=== PATIENT | female | born 1995 | race Caucasian/White ===

== ENCOUNTER → 2017-06-05 | Outpatient (CLI) | payer BC ==
[~2017-06-05] MED LIST: BCPILLS PO; CIPR1TAB10 PO; FLUO20CA36 PO; FLUT0.15 NAE
== END | disposition home or self-care (01) ==
LOC: C.LAB1850 09:20
PROVIDERS: ATTEND Obstetrics & Gynecology
DX: Z11.3 Encounter for screening for infections with a predominantly sexual mode of transmission (principal)

== ENCOUNTER → 2017-06-05 | Outpatient (CLI) | payer BC ==
[2017-06-11 01:01] LABS: CHLAMYDIA TRACH RNA*** NOT DETECTED (NOT DETECTED); GC (NEIS GONORRHOEAE)RNA** NOT DETECTED (NOT DETECTED); TRICHOMONAS VAGINALIS RNA** NOT DETECTED (NOT DETECTED)
== END | disposition home or self-care (01) ==
LOC: C.LABSPEC 12:33
PROVIDERS: ATTEND Obstetrics & Gynecology
DX: Z11.3 Encounter for screening for infections with a predominantly sexual mode of transmission (principal)

== ENCOUNTER → 2018-06-30 | Outpatient (CLI) | payer OTHER | END | disposition home or self-care (01) | LOC: C.LABSPEC 17:04 | PROVIDERS: ATTEND Family Medicine | DX: Z11.3 Encounter for screening for infections with a predominantly sexual mode of transmission (principal) ==

== ENCOUNTER 2024-02-08 17:18 | Inpatient (IN) ==
[2024-02-08] MEDS ORDERED: LIDOCAINE 1% LOCAL 20 ML VIAL INFIL PRN (21:24)
--- NOTE | 2024-02-08 21:31 | History & Physical Report ---
Date of Service February 08, 2024 Assessment & Plan (1) Normal labor: Plan admit, iv, labs. fhts categ 1. plan epidural. rh neg, eval pp. History of Present Illness Chief Complaint: contractions Primary Care Provider: Trang Shahid, DO 28yo at 40wks ega presents to LD with cc of early active labor. Patient writhing in pain. No rom, no vb. +FM. Cx prior exam 2cm and then 3cm by nursing. PNC c/b 1. Rh negative PNL rh neg, ri, gbs neg OBH: g1 GYNH: nl paps no stds Allergies Allergy/AdvReac Type Severity Reaction Status Date / Time seasonal allergies Allergy Mild Congested Uncoded 02/07/24 10:20 Home Medications Medication Instructions Recorded Confirmed Type albuterol sulfate 90 mcg/actuation 2 puff inhalation Q6H PRN 11/11/23 02/08/24 History aerosol inhaler Shortness Of Breath Or Wheezing fluoxetine 10 mg capsule 10 mg PO BID 11/11/23 02/08/24 History magnesium oxide 400 mg PO DAILY 11/11/23 02/08/24 History omega-3 fatty acids-fish oil 684 1 cap PO DAILY 11/11/23 02/08/24 History mg-1,200 mg capsule,delayed release vitamins-iron fumarate 65 1 tab PO DAILY 11/11/23 02/08/24 History mg iron-folic acid 1 mg tablet riboflavin (vitamin B2) 25 mg 25 mg PO DAILY 11/11/23 02/08/24 History tablet vitamins A,C,W-ripw-oanqnr 4,296 1 cap PO DAILY 11/11/23 02/08/24 History mcg-226 mg-90 mg capsule breast pump #1 ea 12/17/23 02/07/24 Rx Patient History Medical History (Updated 02/08/24 @ 21:29 by Kiera Tirado MD, FACOG) Hypertension Hypertension Anxiety Prehypertension Pelvic pain Murmur Hematuria Fatigue Fainting Encounter for screening for infections with predominantly sexual mode of transmission Encounter for routine pelvic examination Encounter for contraceptive management Elevated blood pressure reading without diagnosis of hypertension Ecchymosis Dysmenorrhea Acute pharyngitis Acne Abnormal menses Scoliosis Asthma, exercise induced Anxiety Varicella vaccination Vasovagal syncope Raynaud phenomenon Surgical History (Updated 02/08/24 @ 21:29 by Kiera Tirado MD, FACOG) S/P tonsillectomy S/P wisdom tooth extraction Family History Grandmother (Maternal) Hyperlipidemia Grandfather (Maternal) Hyperlipidemia Hypertension Diabetes Grandfather (Paternal) Colorectal cancer Denies family history of Ovarian cancer Prostate cancer Myocardial infarction Breast cancer Social History (Updated 06/12/23 @ 13:20 by Brea Fitch) Smoking Status: Never smoker Do You Dip or Chew Tobacco: No; Hx Alcohol Use: No Hx Substance Use: No Preferred Language: Iraqi Obstetrics Gyn Physician Required: No Beliefs That Will Affect Care: None marital status: marital status details: leonie Molina (29) [phone] Current Living Situation: Significant Other Current Living Situation Comment: lives with Fob, cat-fob to change litter, pt gloves/mask current occupational status: employed 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 [place] Other Information That Helps Us Care for You: No Feels Safe at Home: Yes Safety Concerns: Feels Safe At This Time Assistive Devices: None Review of Systems as per Subjective / HPI Physical Exam Constitutional: WD/WN, vitals as above Respiratory: normal respiratory effort, lungs clear to auscultation Cardiovascular: Rate/Rhythm: regular rate and regular rhythm Gastrointestinal (Abdomen): soft gravid nt efw 7-8# Musculoskeletal: no edema nontender calves Neurologic: grossly normal Psychiatric: A+Ox3, euthymic affect Genitourinary: OB Exam Abdomen: + vertex Manual OB Exam: + cervical dilation 4 cm, + cervical effacement 90% and + station -2 OB Exam Monitor Tracing: + external FHT monitor used, + external uterine monitor used (q2), + category I and + normal FHT variability Results & Data Vital Signs (Past 12 Hours) Vital Signs Temp Pulse Resp BP 02/08/24 19:45 98.2 F 18 02/08/24 19:45 76 124/70 02/08/24 17:32 98.1 F 20 02/08/24 17:31 100 H 130/79 Coding Level of Care Code None Diagnoses Normal labor O80; Z37.9
[2024-02-08] MEDS: LACTATED RINGER'S 1,000 ML IV PRN (21:39)
[2024-02-08] MEDS ORDERED: SODIUM CHLORIDE 0.9% PF INJ 10 ML VIAL EPI PRN (21:52)
[2024-02-08] MEDS ORDERED: diphenhydrAMINE 50 MG/ML VIAL IV PRN (21:52)
[2024-02-08] MEDS ORDERED: fentaNYL citrate PF 100 MCG/2 ML VIAL EPI PRN (21:52)
[2024-02-08] MEDS ORDERED: ROPIVACAINE 0.5% PF 5 MG/ML 20 ML VIAL EPI PRN (21:52)
[2024-02-08] MEDS ORDERED: NALBUPHINE HCL 5 MG in SYRINGE 0 ML IV PRN (21:52)
[2024-02-08] MEDS ORDERED: LIDOCAINE 2% MPF LOCAL 5 ML VIAL EPI PRN (21:52)
[2024-02-08] MEDS ORDERED: BUPIVACAINE 0.25% PF 30 ML VIAL EPI PRN (21:52)
[2024-02-08] MEDS ORDERED: NALOXONE HCL 1 MG in SODIUM CHLORIDE 0.9% 1,000 ML IV PRN (21:52)
[2024-02-08] MEDS ORDERED: ePHEDrine sulfate 50 MG/ML AMP IV PRN (21:52)
[2024-02-08] MEDS ORDERED: fentANYL 2 MCG/ML BUPIVacaine 0.125%-NSS 100ML BAG EPI PRN (21:52)
[2024-02-08] MEDS ORDERED: NALOXONE HCL 0.4 MG/1 ML VIAL/CARP IV PRN (21:52)
--- NOTE | 2024-02-08 21:52 | Anesthesiology Consultation ---
Date of Service February 08, 2024 Assessment & Plan (1) Encounter for pre-operative examination: Chart Review Chart Review: Acceptable Risk for Surgery and Patient NOT seen in Pre Admission Testing Consults Requested none History Height/Weight Height: 5 ft 7 in Weight: 79.832 kg Allergies Allergy/AdvReac Type Severity Reaction Status Date / Time seasonal allergies Allergy Mild Congested Uncoded 02/07/24 10:20 Medications Home Medications Medication Instructions Recorded Confirmed Last Taken albuterol sulfate 90 mcg/actuation 2 puff inhalation Q6H PRN 11/11/23 02/08/24 Unknown aerosol inhaler Shortness Of Breath Or Wheezing fluoxetine 10 mg capsule 10 mg PO BID 11/11/23 02/08/24 02/08/24 08:00 magnesium oxide 400 mg PO DAILY 11/11/23 02/08/24 02/07/24 20:00 omega-3 fatty acids-fish oil 684 1 cap PO DAILY 11/11/23 02/08/24 02/06/24 08:00 mg-1,200 mg capsule,delayed release vitamins-iron fumarate 65 1 tab PO DAILY 11/11/23 02/08/24 02/08/24 08:00 mg iron-folic acid 1 mg tablet riboflavin (vitamin B2) 25 mg 25 mg PO DAILY 11/11/23 02/08/24 02/07/24 08:00 tablet vitamins A,C,S-brsl-vsuswd 4,296 1 cap PO DAILY 11/11/23 02/08/24 02/07/24 08:00 mcg-226 mg-90 mg capsule breast pump #1 ea 12/17/23 02/07/24 Unknown Active Medications Generic Name Dose Route Start Last Admin Trade Name Freq PRN Reason Stop Dose Admin Lactated Ringer's 1,000 mls @ 125 mls/hr 02/08/24 21:24 02/08/24 21:39 Lr IV 02/10/24 21:23 999 mls/hr .Q8H PRN Administration L&D Protocol Protocol Past Medical History Medical History Hypertension Hypertension Anxiety Prehypertension Pelvic pain Murmur Hematuria Fatigue Fainting Encounter for screening for infections with predominantly sexual mode of transmission Encounter for routine pelvic examination Encounter for contraceptive management Elevated blood pressure reading without diagnosis of hypertension Ecchymosis Dysmenorrhea Acute pharyngitis Acne Abnormal menses Scoliosis Asthma, exercise induced Anxiety Varicella vaccination Vasovagal syncope Raynaud phenomenon Past Family History Family History Grandmother (Maternal) Hyperlipidemia Grandfather (Maternal) Hyperlipidemia Hypertension Diabetes Grandfather (Paternal) Colorectal cancer Denies family history of Ovarian cancer Prostate cancer Myocardial infarction Breast cancer Past Surgical History Surgical History S/P tonsillectomy S/P wisdom tooth extraction Social History Smoking Status: Never smoker Do You Dip or Chew Tobacco: No Hx Alcohol Use: No Hx Substance Use: No Physical Exam Vital Signs Last Vital Signs Temp 98.2 F 02/08/24 19:45 Pulse 89 02/08/24 21:49 Resp 18 02/08/24 19:45 BP 124/70 02/08/24 19:45 Pulse Ox 94 02/08/24 21:49
[2024-02-08 22:13] LABS: Hematocrit (blood only) 41.4 % (37.0-47.0); Hemoglobin 13.8 g/dl (12.0-16.0); Mean Corpuscular Hemoglobin 30.3 pg (25.0-34.0); Mean Corpuscular Hgb Conc 33.3 g/dL (32.0-36.0); Mean Corpuscular Volume 90.8 fL (80.0-100.0); Mean Platelet Volume 9.6 fL (9.4-12.4); Platelet Count 189 K/uL (130-400); RDW Coefficient of Variation 14.5 % (11.5-14.5); RDW Standard Deviation 47.5 fL (36.4-46.3); Red Blood Count 4.56 M/uL (4.20-5.40); White Blood Count 16.08 K/ul (4.8-10.8)
[2024-02-08] MEDS: BUPIVACAINE 0.25% PF 30 ML VIAL ONE (22:30)
[2024-02-08] MEDS: LIDOCAINE 2%/EPINEPHRINE 1:200,000 20 ML PF ONE (22:30)
[2024-02-08] MEDS: fentANYL 2 MCG/ML BUPIVacaine 0.125%-NSS 100ML BAG ONE (22:34)
[2024-02-08] MEDS: fentaNYL citrate PF 100 MCG/2 ML VIAL ONE (22:35)
[2024-02-08] MEDS: ePHEDrine sulfate 50 MG/ML AMP ONE (22:35)
[2024-02-08] MEDS: SODIUM CHLORIDE 0.9% PF INJ 10 ML VIAL ONE (22:35)
[2024-02-08] MEDS: LIDOCAINE 2%/EPINEPHRINE 1:200,000 20 ML PF EPI STA (22:36)
[2024-02-08] MEDS: fentaNYL citrate PF 100 MCG/2 ML VIAL EPI STA (22:36)
[2024-02-08] MEDS: BUPIVACAINE 0.25% PF 30 ML VIAL EPI STA (22:36)
[2024-02-08] MEDS: SODIUM CHLORIDE 0.9% PF INJ 10 ML VIAL EPI STA (23:28)
--- NOTE | 2024-02-08 23:38 | Labor Progress Brief Note ---
Date of Service February 08, 2024 Subjective comfortable with epidural. Assessment & Plan (1) Normal labor: Plan good progress in labor. fhts categ 1. anticip 2nd stage soon. Admission and Anticipated Discharge Date Admission Date: February 08, 2024 Physical Exam Constitutional: WD/WN, vitals as above Genitourinary: Manual OB Exam: + cervical dilation 9 cm, + cervical effacement 100%, + station + 1 and + amniotic fluid (arom) clear OB Exam Monitor Tracing: + external FHT monitor used, + external uterine monitor used (q2), + category I and + normal FHT variability Results & Data Vital Signs (Past 12 Hours) Vital Signs Temp Pulse Resp BP Pulse Ox 02/08/24 23:31 87 123/85 02/08/24 23:29 83 98 02/08/24 23:28 81 89 L 02/08/24 23:24 82 96 02/08/24 23:19 75 100 02/08/24 23:14 84 123/59 L 97 02/08/24 23:09 84 100 02/08/24 23:04 79 100 02/08/24 23:01 75 87 L 02/08/24 22:59 96 02/08/24 22:59 84 02/08/24 22:59 85 128/64 02/08/24 22:54 77 100 02/08/24 22:52 79 89 L 02/08/24 22:49 85 98 02/08/24 22:44 76 130/72 100 02/08/24 22:41 77 88 L 02/08/24 22:39 86 129/70 100 02/08/24 22:37 96 H 20 131/74 02/08/24 22:35 81 129/70 02/08/24 22:34 89 100 02/08/24 22:33 85 133/70 02/08/24 22:31 79 141/73 H 02/08/24 22:30 91 H 89 L 02/08/24 22:29 90 02/08/24 22:29 89 02/08/24 22:29 94 H 138/76 02/08/24 22:27 86 16 137/81 02/08/24 22:24 88 95 02/08/24 22:20 81 85 L 02/08/24 22:19 84 100 02/08/24 22:14 83 L 02/08/24 22:14 69 02/08/24 22:14 69 79 L 02/08/24 22:09 87 98 02/08/24 22:04 68 100 02/08/24 21:59 75 98 02/08/24 21:55 103 H 94 02/08/24 21:54 97 H 96 02/08/24 21:49 89 94 02/08/24 21:44 98 02/08/24 21:44 79 02/08/24 21:44 102 H 93 02/08/24 19:45 98.2 F 18 02/08/24 19:45 76 124/70 02/08/24 17:32 98.1 F 20 02/08/24 17:31 100 H 130/79 Coding Level of Care Code None Diagnoses Normal labor O80; Z37.9
[2024-02-08] MEDS ORDERED: OXYTOCIN 30 UNITS/NSS 30 UNITS/500 ML BAG IV PRN (23:46)
[2024-02-09] MEDS: OXYTOCIN 30 UNITS/NSS 30 UNITS/500 ML BAG IV PRN (02:37)
--- NOTE | 2024-02-09 02:54 | Delivery Summary ---
Vaginal Delivery Summary Date of Service February 09, 2024 Vaginal Delivery Summary and 2nd Degree LAC The patient dilated to complete and pushed to deliver a viable male infant Apgars 8 and 9 via over 2nd degree perineal laceration. Cephalic and anterior shoulder delivered spontaneously. Then with gentle downward pressure remaining shoulder and body delivered. Infant was vigorous and crying at . Cord clamped at 30 seconds of life and to maternal abdomen where the cord was then doubly clamped and cut. Placenta delivered spontaneously and intact, three-vessel cord. Hemostasis achieved with dilute pitocin and uterine massage and drainage of the bladder for approximately 75 cc under sterile conditions. Laceration repaired in routine fashion with 3-0 vicryl. Left labial separation reapproximated with 4-0 vicryl. Cervix and sulci intact. EBL 300 cc. Mother and baby stable in recovery. [facility] [place] Delivery Type Details: and 2nd Degree LAC
[2024-02-09] MEDS ORDERED: ALBUTEROL HFA 8 GM INHALER INH PRN (03:02)
[2024-02-09] MEDS ORDERED: HYDROCORTISONE ACETATE 25 MG SUPP PR PRN (03:02)
[2024-02-09] MEDS ORDERED: bisacodyL 10 MG SUPP PR PRN (03:02)
[2024-02-09] MEDS ORDERED: OXYTOCIN 30 UNITS/NSS 30 UNITS/500 ML BAG IV PRN (03:02)
[2024-02-09] MEDS: DIPHTHER/TETAN/PERTUS Vaccine (Tdap, Adol/Adult) 0.5mL IM ONE (03:28)
[2024-02-09] MEDS: OXYTOCIN 20 UNITS/LR 1,002 ML IV SCH (03:32)
[2024-02-09] MEDS: BENZOCAINE 20% SPRY 85 APPLN/85 GM CAN EXT PRN (04:52)
[2024-02-09] MEDS ORDERED: NON-FORMULARY MEDICATION (Riboflavin (Vitamin B2) 25 mg Tablet) PO SCH (09:00)
[2024-02-09] MEDS: IBUPROFEN 600 MG TAB PO PRN (09:26)
[2024-02-09] MEDS: DOCUSATE SODIUM 100 MG CAP PO SCH (09:26)
[2024-02-09] MEDS: PRENATAL VITAMIN 1 TAB PO SCH (09:26)
[2024-02-09] MEDS: FLUoxetine HCL 10 MG CAP PO SCH (09:27)
[2024-02-09] MEDS: MAGNESIUM OXIDE 400 MG TAB PO SCH (09:27)
--- NOTE | 2024-02-09 11:46 | Anesthesia Procedure Note ---
Date of Service February 09, 2024 Anesthesia Post Epidural Note Vital Signs Vital Signs: Temp Pulse Resp BP Pulse Ox O2 Del Method 36.4 C L 88 17 132/84 99 Room Air 02/09/24 08:45 02/09/24 08:45 02/09/24 08:45 02/09/24 08:45 02/09/24 05:39 02/09/24 08:45 Pain Intensity Lower Abdomen: Pain Intensity: 7 Notes Mental Status: alert / awake / arousable and participated in evaluation Nausea / Vomiting: adequately controlled Pain: adequately controlled Airway Patency, RR, SpO2: stable & adequate BP & HR: stable & adequate Hydration State: stable & adequate Neuraxial Anesthesia: was administered and sensory block is resolving Anesthetic Complications: no major complications apparent and Pt Satisfied with anesthetic care Epidural: Removed without complications and With tip intact
[2024-02-09] MEDS: ACETAMINOPHEN 325 MG TAB PO PRN (12:33)
[2024-02-09] MEDS: oxyCODONE/ACETAMINOPHEN 5mg/325mg TAB PO PRN (17:30)
--- NOTE | 2024-02-09 19:31 | Communication Note ---
Date of Service: February 09, 2024 Alerted by nursing and at handoff of potential PDPHA. Patient complaining of positional BENDER radiating to neck and shoulders, waxed/wained throughout day, at worst 9/10, currently 5/10, improved with lying flat. Due to concern for PDPHA instructed patient on conservative therapy (hydration, pain medication, caffeine) vs. epidural blood patch. Patient elected for epidural blood patch. Procedure note to follow.
--- NOTE | 2024-02-09 19:35 | Anesthesia Procedure Note ---
Anesthesia Procedure Note Epidural Blood Patch Procedure Note Vital Signs: BP: 125/77 HR: 80 RR: 21 Temp: 98.2 Date of procedure: 02/09/24 Consent: Risk / Benefits Reviewed With: PT / POA / Parent / Guardian, Accepts Plan, Informed Consent Obtained and All Questions Answered Risks include: Failure of technique, Back pain, Infection, Bleeding, Nerve injury and Dural puncture Monitors attached: Blood Pressure and Pulse Oximetry Time out completed: Yes Premedication: None Position: Sitting Surgical Prep: Hand hygeine: Soap and water Equipment/Supplies: Cap, Mask, Sterile gloves, Sterile drapes and Sterile procedures used Skin prep: Chloraprep Local medication: 1% Lidocaine (ml) (3 ml) Venous access site: Right antecubital vein Site: Midline Attempts: 1 Procedure Summary: Time out performed, patient positioned in seated position, prepped and draped. Lidocaine infiltration and epidural space accessed with 17 G thouy at 6 cm depth, no blood/csf/parasthesia. Nurse at front obtained sterile IV access of right AC with 20 G IV, 20 ml of blood drawn and inserted in epidural space at slow pace without patient pain or discomfort. Patient instructed to lie flat for 60 min and slowly sit up, no strenuous activity for 24 hours. Post-Procedure: Pt hemodynamically stable, Pt tolerates well and No complications
--- NOTE | 2024-02-10 06:55 | Obstetrical Progress Note ---
Date of Service <Shelly Barnett MD - Last Filed: 02/10/24 06:56> February 10, 2024 Assessment & Plan <Shelly Barnett MD - Last Filed: 02/10/24 06:56> (1) Encounter for assessment: (2) Rh negative status during : Plan Patient with the above mentioned history and findings was evaluated at bedside and found awake, alert, oriented in all spheres, afebrile, and in no acute distress. Vital signs showed no fever and blood pressures remained stable. Her blood type is O negative with baby's blood type being A positive (s/p Rhogam on 02/09/24) and most recent hemoglobin is adequate at 13.8 g/dL. Serologies are negative for GBS and patient is Rubella immune. Overall, patient is doing well clinically and meeting the desired milestone for her course. Will continue routine pp care and encourage breastfeed with the help of network relations consultant since patient is having some difficulty. Consider discharge tomorrow if patient remains stable. All questions were answered. <Kiera Tirado MD, FACOG - Last Filed: 02/10/24 07:34> (1) Encounter for assessment: (2) Rh negative status during : Subjective <Shelly Barnett MD - Last Filed: 02/10/24 06:56> Neena is a 28 y/o female who is now PPD # 1 following @ 40 1/7 wga. Reports feeling well overall this morning. Refers mild abdominal cramping & 3/10 pain well managed on analgesics. Voiding spontaneously. Tolerating meals overnight and able to ambulate some. Has been passing gas but no bm yet. Some persistent lochia with some improvement this morning. Trying to breastfeed but having difficulty. Constitutional: no fever, no chills or no sweats Denies shortness of breath or difficulty breathing Cardiovascular: no chest pain or no palpitations Breast: no breast pain Genitourinary (female): no dysuria Neurologic: no headache(s) Denies changes in vision Physical Exam <Shelly Barnett MD - Last Filed: 02/10/24 06:56> General: Alert. Oriented to person, time, and place. Afebrile. No acute distress. Eyes: pupils equal and reactive to light bilaterally, extraocular movements intact. Cardiac: Regular rate and rhythm, no murmurs/rubs/gallops. Respiratory: Clear to auscultation bilaterally a/p, no wheezes/rales/rhonchi. No increased work of breathing. Symmetrical chest rise. No respiratory distress. Abdomen: Soft, nontender, nondistended. Bowel sounds present. Uterus: Uterine fundus firm, nontender, and palpable below umbilicus. Lower Extremities: No lower extremity edema or swelling. No deep calf pain. Milla's negative bilaterally. Psych: Euthymic affect. Mood and affect congruence. Regular speech rate and content. Results & Data <Shelly Barnett MD - Last Filed: 02/10/24 06:56> Vital Signs (Past 12 Hours) Vital Signs Temp Pulse Resp BP Pulse Ox O2 Del Method 02/10/24 00:05 37.3 C 83 16 128/78 Room Air 02/09/24 21:00 36.7 C 80 16 124/84 98 Room Air 02/09/24 20:10 80 116/76 98 Room Air 02/09/24 19:55 84 116/76 98 Room Air 02/09/24 19:40 78 103/61 97 Room Air 02/09/24 19:25 86 124/79 98 Room Air Supervising Physician <Kiera Tirado MD, FACOG - Last Filed: 02/10/24 07:34> Co-Signing Physician Notes Resident Physician Supervision Note: I was present with Dr. Grossman during the history and exam. I discussed the case with the resident and agree with the findings and plan as documented in the note. Any exceptions or clarifications are listed here: stable routine care. rh neg, had rhogam. ri. abd ff 2 down nt, ext nt calves. ppd#1 s/p routine care. Documented By: Kiera Tirado MD, FACOG
--- NOTE | 2024-02-10 08:59 | Communication Note ---
Date of Service: February 10, 2024 Asked to assess Neena this AM for back pain. Neena states that her headache has improved following blood patch yesterday, however she has severe back pain/ pressure that began after blood patch yesterday and continues today. She states that her pain radiates into her lumbar back bilaterally. There are no radiating symptoms down either extremity and no weakness or loss of sensation. She has had trouble standing straight and walking due to pain in the back. She is afebrile. On exam, vitals are normal. the site of the blood patch appears normal. There is no swelling or redness. She does not have tenderness to palpitation. Sensation and motor intact in lower extremities. Upon asking her to stand, she is able to do so slowly but remains hunched over due to pain. Her gait appears slow and unsteady. Discussed with patient that back pain following blood patch is common and most likely blood patch has put pressure in her lumbar back that may be irritating lumbar nerve roots. Discussed that symptoms should improve with time. Less likely epidural hematoma/abscess given afebrile with normal vitals and labs, no evidence of bruising or bleeding, no motor/sensory dysfunction. No further diagnostic studies warranted at this time. Instructed patient to notify nurse if any red flag symptoms including fever, weakness, bowel/bladder dysfunction and will have call anesthesiologist see patient tomorrow AM prior to discharge to ensure symptoms are improved. In the meantime, advised tylenol 1 g q6h, ibuprofen 600 mg q6h and assistance with standing/walking.
[2024-02-10] MEDS: ACETAMINOPHEN 500 MG TAB PO PRN (09:21)
[2024-02-10] MEDS: CYCLOBENZAPRINE HCL 10 MG TAB PO SCH (22:02)
--- NOTE | 2024-02-11 08:01 | Obstetrical Progress Note ---
Date of Service <Shelly Barnett MD - Last Filed: 02/11/24 08:01> February 11, 2024 Assessment & Plan <Shelly Barnett MD - Last Filed: 02/11/24 08:01> (1) Rh negative status during : (2) Encounter for assessment: Plan Patient with the above mentioned history and findings was evaluated at bedside and found awake, alert, oriented in all spheres, afebrile, and in no acute distress. Vital signs showed no fever and blood pressures remained stable. Her blood type is O negative with baby's blood type being A positive (s/p Rhogam on 02/09/24) and most recent hemoglobin is adequate at 13.8 g/dL. Serologies are negative for GBS and patient is Rubella immune. Overall, patient is doing well clinically and meeting the desired milestone for her course. Headaches seem to be a combination of possible tension headache with some musculoskeletal component given improvement with positional changes. Advised she can continue to use ibuprofen, heating pads, and suspect that she will feel better after better sleep. Patient found stable and fit to be discharged today. Discharge instructions discussed. Patient to call to make an appointment with the OB office for her 6-week routine pp evaluation. All questions answered. <Yaya Mckeon MD - Last Filed: 02/13/24 16:40> (1) Rh negative status during : (2) Encounter for assessment: Subjective <Shelly Barnett MD - Last Filed: 02/11/24 08:01> Neena is a 28 y/o female who is now PPD # 2 following @ 40 1/7 wga. Reports feeling well overall this morning. Refers mild abdominal cramping & 3/10 pain well managed on analgesics. Has been having headaches since last night that come on suddenly. She describes that they start at the base of her skull and move down her neck and gets better when she lies down. Motrin and Flexeril help with the pain some. No associated N/V, photophobia or phonophobia. Voiding spontaneously. Tolerating meals overnight and able to ambulate some. Has been passing gas but no bm yet. Some persistent lochia with some improvement this morning. better today. Constitutional: no fever, no chills or no sweats Denies shortness of breath or difficulty breathing Cardiovascular: no chest pain or no palpitations Breast: no breast pain Genitourinary (female): no dysuria Neurologic: no headache(s) Denies changes in vision Physical Exam <Shelly Barnett MD - Last Filed: 02/11/24 08:01> General: Alert. Oriented to person, time, and place. Afebrile. No acute distress. Eyes: pupils equal and reactive to light bilaterally, extraocular movements intact. Cardiac: Regular rate and rhythm, no murmurs/rubs/gallops. Respiratory: Clear to auscultation bilaterally a/p, no wheezes/rales/rhonchi. No increased work of breathing. Symmetrical chest rise. No respiratory distress. Abdomen: Soft, nontender, nondistended. Bowel sounds present. Uterus: Uterine fundus firm, nontender, and palpable below umbilicus. Lower Extremities: No lower extremity edema or swelling. No deep calf pain. Milla's negative bilaterally. Psych: Euthymic affect. Mood and affect congruence. Regular speech rate and content. Results & Data <Shelly Barnett MD - Last Filed: 02/11/24 08:01> Vital Signs (Past 12 Hours) Vital Signs Temp Pulse Resp BP Pulse Ox O2 Del Method 02/10/24 23:15 36.8 C 61 18 118/77 98 Room Air 02/10/24 20:20 37.1 C 74 18 127/79 100 Room Air Supervising Physician <Yaya Mckeon MD - Last Filed: 02/13/24 16:40> Co-Signing Physician Notes Patient seen with resident and agree with the above findings and plan. Stable for discharge.
--- NOTE | 2024-02-11 09:01 | Communication Note ---
Date of Service: February 11, 2024 I evaluated the patient. The patient was sitting up eating breakfast. The patient stated that she had a positional BENDER with neck pain in the middle of the night but it improved with ibuprofen. The patient was currently doing well. I further educated her on spinal headaches. I recommended that the patient continue ibuprofen and oral fluids. I spoke with Dr. Mckeon, and she was stable for discharge from the anesthesia perspective.
== END 2024-02-11 14:04 | disposition home or self-care (01) | DRG 807 ==
LOC: OPB 17:18 → 4S1 17:19 → 4E2 02-09 05:16

== ENCOUNTER 2025-09-16 02:26 | Inpatient (IN) ==
[2025-09-16] MEDS ORDERED: LIDOCAINE 1% LOCAL 20 ML VIAL INFIL PRN (03:05)
[2025-09-16] MEDS ORDERED: OXYTOCIN 30 UNITS/NSS 30 UNITS/500 ML BAG IV PRN ×2 (03:05→11:00)
--- NOTE | 2025-09-16 03:08 | History & Physical Report ---
Date of Service September 16, 2025 Assessment & Plan (1) PROM (premature rupture of membranes): Plan patient will be admitted with prom. Would like to allow expectant management for now and see if contractions orange picker and onet of labor ensues. Discussed pit aug at 6 or so hours if needed. She agrees. fetus category. epidural on demand. anticipate . History of Present Illness Chief Complaint: rom Primary Care Provider: Trang Shahid DO Patient is a [id number] with iup at 39 2/7 who presents to labor and delivery c/o gross rom about 1:30 am, clear. no real onset of contractions. +fm. Is scheduled for a primary elective c/s because of hx of previous trauma. ON review of records and discussion with patient, poor experience last time, nurse not responsive to needs, did not call doctor until practically too late for delivery (only pushed 3 times), ineffective epidural, very painful delivery and repair (delivery note reviewed, Dr. Tirado, does not note complicated repair, second degree), slow healing of perineal tear, small cystourethrocele pp. Patient is already feeling better about the situation and has reconsidered her choice and would like to proceed with vaginal delivery. and Delivery Plans Need for Rhogam d/t RH Negative Mother *Rhogam given 07/12/2025 - SP Hypothyroidism in *TFT's Q4wks sees [facility] endo Ruptured ectopic 10/2024. Salpingectomy May choose primary C/S SCHEDULED FOR 09/17/[address] BURGOS OB Labs: Blood Type O Negative 02/18/25 Antibody Screen NEGATIVE 07/12/25 Hgb 11.0 g/dl (12.0-16.0) L 06/28/25 Hct 33.0 % (37.0-47.0) L 06/28/25 MCV 89.3 fL (80.0-100.0) 02/18/25 Plt Count 231 K/uL (130-400) 02/18/25 Rubella IgG Antibody Immune (Immune) 02/18/25 RPR Nonreactive (Nonreactive) 06/18/23 Treponema pallidum Ab Negative (Negative) 06/28/25 Hep Bs Antigen Negative (Negative) 02/18/25 Hep Bs Antigen NON-REACTIVE (NON-REACTIVE) 09/10/23 Hepatitis C Antibody Negative (Negative) 02/18/25 Hepatitis C Ab (EIA) NON-REACTIVE (NON-REACTIVE) 09/10/23 HIV 1&2 Ab/P24 Ag 4thGn Negative (Negative) 02/18/25 HIV (1&2) Ag & Ab Conf NON-REACTIVE (NON-REACTIVE) 06/18/23 Glucose 1 Hr 50 gm 89 mg/dl (70-130) 06/28/25 OB Optional Labs: Chlamydia trachomatis RNA Not Detected (NotDetected) 02/18/25 Neisseria gonorrhoeae RNA Not Detected (NotDetected) 02/18/25 Thyroid Stimulating Hormone (TSH) 1.775 uIu/ml (0.300-4.500) 08/11/25 Labs Reviewed: cf/sma-negative in prior , HK gbs neg Allergies Allergy/AdvReac Type Severity Reaction Status Date / Time nickel Allergy Mild Rash Verified 09/09/25 08:59 seasonal allergies Allergy Mild Congested Uncoded 09/09/25 08:59 Home Medications Medication Instructions Recorded Confirmed Type albuterol sulfate 90 mcg/actuation 2 puff inhalation Q6H PRN 11/11/23 09/09/25 History aerosol inhaler Shortness Of Breath Or Wheezing fluoxetine 10 mg capsule 10 mg PO BID 11/11/23 09/09/25 History magnesium oxide 400 mg PO DAILY 11/11/23 09/09/25 History omega-3 fatty acids-fish oil 684 1 cap PO DAILY 11/11/23 09/09/25 History mg-1,200 mg capsule,delayed release vitamins-iron fumarate 65 1 tab PO DAILY 11/11/23 09/09/25 History mg iron-folic acid 1 mg tablet riboflavin (vitamin B2) 25 mg 25 mg PO DAILY 11/11/23 09/09/25 History tablet vitamins A,C,H-ezcl-tomopj 4,296 1 cap PO DAILY 11/11/23 09/09/25 History mcg-226 mg-90 mg capsule levothyroxine 75 mcg tablet 75 mcg PO .COMPLEX #90 tabs 06/29/25 09/09/25 Rx calcium carbonate 500 mg PO UD PRN Acid Reflux 09/08/25 09/09/25 History ferrous sulfate 325 mg (65 mg 325 mg PO Q OTHER DAY 09/08/25 09/09/25 History iron) tablet (Iron (ferrous sulfate)) Patient History Medical History Acid reflux Acne Anxiety Asthma, exercise induced last used rescue inhaler > 1.5 years ago Breast lump on right side at 1 o'clock position had mammo and US, felt this was due to (had just had child) Dysmenorrhea Elevated blood pressure reading without diagnosis of hypertension states she had "white coat syndrome" but had never been on bp meds Fainting has had numerous times- while in highschool, felt related to anxiety- no issues as an adult Hematuria hx Hx: UTI (urinary tract infection) (06/2025) no current symptoms Hypothyroidism Midline cystocele Murmur (2007) diagnosed when a child, had an echo approx 2007 at [facility]- no findings no murmur noted at 11/11/23 ED visit Raynaud phenomenon Rh negative status during Ruptured ectopic (11/24/24) Left salpingectomy 11/24/24 Scoliosis Surgical History Hx of dilation and curettage (10/2024) ectopic S/P tonsillectomy S/P wisdom tooth extraction Family History Grandmother (Maternal) Hyperlipidemia Grandfather (Maternal) Hyperlipidemia Hypertension Diabetes Grandfather (Paternal) Colorectal cancer Denies family history of Ovarian cancer Prostate cancer Myocardial infarction Breast cancer Social History (Updated 02/16/25 @ 13:41 by Sharee Og) Smoking Status: Never smoker Second Hand Exposure: No; Do You Dip or Chew Tobacco: No; Hx Alcohol Use: Yes Hx Substance Use: No Preferred Language: Greek Communication Ability: Effective Customer Operations Representative Required: No Beliefs That Will Affect Care: None marital status: marital status details: leonie Molina (31) [phone] Current Living Situation: Spouse and Family Current Living Situation Comment: lives with spouse, child, 1dog, 1cat, fob to change litter current occupational status: employed current occupation: [employer] Feels Safe at Home: Yes Assistive Devices: Contacts and Glasses OB History Past Pregnancies Del. Date GA wks Lbr Lgth wt Sex Type del Anes Place Del Prov ? Comment 02/09/24 40 7lbs 5.8ozs M E pidural [facility] Dr. Tirado N 11/23/24 Ectopic [employer] History noncontributory Physical Exam Constitutional: WD/WN, vitals as above Gastrointestinal (Abdomen): soft, gravid , nt Psychiatric: A+Ox3, euthymic affect cx--3-4/50/-2 gross srom toco--q2-3, not really feeling alot efm--140s with mod variability, accels present, no decels. Coding Level of Care Code None Diagnoses PROM (premature rupture of membranes) O42.90
[2025-09-16 04:19] LABS: Hematocrit (blood only) 36.4 % (37.0-47.0); Hemoglobin 12.0 g/dl (12.0-16.0); Mean Corpuscular Hemoglobin 30.0 pg (25.0-34.0); Mean Corpuscular Volume 91.0 fL (80.0-100.0); Platelet Count 158 K/uL (130-400); RDW Standard Deviation 49.1 fL (36.4-46.3); Red Blood Count 4.00 M/uL (4.20-5.40); White Blood Count 8.05 K/ul (4.8-10.8)
[2025-09-16] MEDS: LACTATED RINGER'S 1,000 ML IV PRN (06:11)
[2025-09-16] MEDS: fentANYL 2 MCG/ML BUPIVacaine 0.125%-NSS 100ML BAG ONE (06:54)
[2025-09-16] MEDS: LIDOCAINE 2%/EPINEPHRINE 1:200,000 20 ML PF ONE (06:56)
--- NOTE | 2025-09-16 06:58 | Anesthesiology Consultation ---
Date of Service September 16, 2025 Assessment & Plan Chart Review Chart Review: Acceptable Risk for Labor Epidural Consults Requested none History Height/Weight Height: 5 ft 7 in Weight: 82.1 kg Allergies Allergy/AdvReac Type Severity Reaction Status Date / Time nickel Allergy Mild Rash Verified 09/09/25 08:59 seasonal allergies Allergy Mild Congested Uncoded 09/09/25 08:59 Medications Home Medications Medication Instructions Recorded Confirmed Last Taken albuterol sulfate 90 mcg/actuation 2 puff inhalation Q6H PRN 11/11/23 09/16/25 Unknown aerosol inhaler Shortness Of Breath Or Wheezing fluoxetine 10 mg capsule 10 mg PO BID 11/11/23 09/16/25 09/15/25 08:00 magnesium oxide 400 mg PO DAILY 11/11/23 09/16/25 09/13/25 13:00 omega-3 fatty acids-fish oil 684 1 cap PO DAILY 11/11/23 09/16/25 09/13/25 08:00 mg-1,200 mg capsule,delayed release vitamins-iron fumarate 65 1 tab PO DAILY 11/11/23 09/09/25 09/15/25 08:00 mg iron-folic acid 1 mg tablet riboflavin (vitamin B2) 25 mg 25 mg PO DAILY 11/11/23 09/09/25 02/07/24 08:00 tablet vitamins A,C,I-kslp-rpaamg 4,296 1 cap PO DAILY 11/11/23 09/09/25 02/07/24 08:00 mcg-226 mg-90 mg capsule levothyroxine 75 mcg tablet 75 mcg PO .COMPLEX #90 tabs 06/29/25 09/16/25 09/15/25 07:00 calcium carbonate 500 mg PO UD PRN Acid Reflux 09/08/25 09/16/25 09/14/25 ferrous sulfate 325 mg (65 mg 325 mg PO Q OTHER DAY 09/08/25 09/16/25 09/15/25 08:00 iron) tablet (Iron (ferrous sulfate)) Active Medications Generic Name Dose Route Start Last Admin Trade Name Freq PRN Reason Stop Dose Admin Lactated Ringer's 1,000 mls @ 125 mls/hr 09/16/25 03:05 09/16/25 06:11 Lr IV 09/18/25 03:04 999 mls/hr .Q8H PRN Administration L&D Protocol Protocol Past Medical History Medical History Acid reflux Acne Anxiety Asthma, exercise induced last used rescue inhaler > 1.5 years ago Breast lump on right side at 1 o'clock position had mammo and US, felt this was due to (had just had child) Dysmenorrhea Elevated blood pressure reading without diagnosis of hypertension states she had "white coat syndrome" but had never been on bp meds Fainting has had numerous times- while in highschool, felt related to anxiety- no issues as an adult Hematuria hx Hx: UTI (urinary tract infection) (06/2025) no current symptoms Hypothyroidism Midline cystocele Murmur (2007) diagnosed when a child, had an echo approx 2007 at [facility]- no findings no murmur noted at 11/11/23 ED visit Raynaud phenomenon Rh negative status during Ruptured ectopic (11/24/24) Left salpingectomy 11/24/24 Scoliosis Past Family History Family History Grandmother (Maternal) Hyperlipidemia Grandfather (Maternal) Hyperlipidemia Hypertension Diabetes Grandfather (Paternal) Colorectal cancer Denies family history of Ovarian cancer Prostate cancer Myocardial infarction Breast cancer Past Surgical History Surgical History Hx of dilation and curettage (10/2024) ectopic S/P tonsillectomy S/P wisdom tooth extraction Social History Smoking Status: Never smoker Do You Dip or Chew Tobacco: No Hx Alcohol Use: No Hx Substance Use: No substance use type: does not use Physical Exam Vital Signs Last Vital Signs Temp 36.7 C 09/16/25 05:24 Pulse 92 H 09/16/25 06:57 Resp 16 09/16/25 02:53 BP 107/58 L 09/16/25 06:57 Pulse Ox 99 09/16/25 06:53 Testing Laboratory Results 09/16/25 03:55
[2025-09-16] MEDS ORDERED: diphenhydrAMINE 50 MG/ML VIAL IV PRN ×2 (07:00→07:07)
[2025-09-16] MEDS ORDERED: NALBUPHINE HCL INJ 10 MG/ML AMP IV PRN ×2 (07:00→07:07)
[2025-09-16] MEDS ORDERED: SODIUM CHLORIDE 0.9% PF INJ 10 ML VIAL EPI PRN ×2 (07:00→07:07)
[2025-09-16] MEDS ORDERED: ROPIVACAINE 0.5% PF 5 MG/ML 20 ML VIAL EPI PRN ×2 (07:00→07:07)
[2025-09-16] MEDS ORDERED: LIDOCAINE 2% MPF LOCAL 5 ML VIAL EPI PRN ×2 (07:00→07:07)
[2025-09-16] MEDS ORDERED: fentANYL 2 MCG/ML BUPIVacaine 0.125%-NSS 100ML BAG EPI PRN ×2 (07:00→07:07)
[2025-09-16] MEDS ORDERED: BUPIVACAINE 0.25% PF 30 ML VIAL EPI PRN ×2 (07:00→07:07)
[2025-09-16] MEDS ORDERED: NALOXONE HCL 1 MG in SODIUM CHLORIDE 0.9% 1,000 ML IV PRN ×2 (07:00→07:07)
[2025-09-16] MEDS ORDERED: NALOXONE HCL 0.4 MG/1 ML VIAL/CARP IV PRN ×2 (07:00→07:07)
--- NOTE | 2025-09-16 07:59 | Labor Progress Brief Note ---
Date of Service September 16, 2025 Subjective comfortable after epidural. Did get low blood pressure, treated and now feeling a bit poorly Assessment & Plan (1) PROM (premature rupture of membranes): Plan making change but contractions are spacing since epidural and want to add pitocin to get head to apply to cervix. fetus category one. anticipate . Admission and Anticipated Discharge Date Admission Date: September 16, 2025 Physical Exam Physical Exam: cx--5-6/100/-3, head anterior, forebag palpable with space behind head bsus--vertex toco--q3-5min efm--130s wtih mod variability, accels to 150s, no decels Results & Data Vital Signs (Past 12 Hours) Vital Signs Temp Pulse Resp BP Pulse Ox 09/16/25 07:53 96 H 100 09/16/25 07:48 95 H 100 09/16/25 07:46 90 120/61 09/16/25 07:43 105 H 100 09/16/25 07:41 80 128/68 09/16/25 07:38 109 H 100 09/16/25 07:35 85 124/60 09/16/25 07:33 92 H 100 09/16/25 07:30 90 20 129/60 09/16/25 07:28 77 99 09/16/25 07:25 79 127/55 L 09/16/25 07:23 99 H 100 09/16/25 07:20 82 130/63 09/16/25 07:18 84 99 09/16/25 07:15 87 132/60 09/16/25 07:13 99 09/16/25 07:13 100 H 09/16/25 07:13 98 H 144/67 H 09/16/25 07:11 106 H 141/64 H 09/16/25 07:09 122 H 158/69 H 09/16/25 07:08 123 H 100 09/16/25 07:07 97 H 129/59 L 09/16/25 07:05 116 H 122/58 L 09/16/25 07:03 100 09/16/25 07:03 121 H 09/16/25 07:03 125 H 156/68 H 09/16/25 07:01 133 H 161/76 H 09/16/25 07:00 18 09/16/25 07:00 36.7 C 18 09/16/25 06:59 103 H 106/62 09/16/25 06:58 106 H 99 09/16/25 06:57 92 H 107/58 L 09/16/25 06:56 97 H 118/58 L 09/16/25 06:55 94 H 104/58 L 09/16/25 06:53 99 09/16/25 06:53 92 H 09/16/25 06:53 88 123/63 09/16/25 06:52 86 116/65 09/16/25 06:50 71 125/76 09/16/25 06:48 100 09/16/25 06:48 71 09/16/25 06:48 77 78/40 L 09/16/25 06:47 80 90/47 L 09/16/25 06:45 100 H 127/69 09/16/25 06:43 100 H 100 09/16/25 06:38 84 100 09/16/25 06:33 82 100 09/16/25 06:28 78 100 09/16/25 06:23 77 100 09/16/25 06:21 72 138/72 09/16/25 05:24 36.7 C 09/16/25 03:08 107 H 134/64 09/16/25 02:53 36.6 C 107 H 16 Coding Level of Care Code None Diagnoses PROM (premature rupture of membranes) O42.90
[2025-09-16] MEDS: OXYTOCIN 30 UNITS/NSS 30 UNITS/500 ML BAG IV PRN (08:02)
[2025-09-16] MEDS: SODIUM CHLORIDE 0.9% PF INJ 10 ML VIAL ONE (08:31)
[2025-09-16] MEDS: BUPIVACAINE 0.25% PF 30 ML VIAL EPI STA ×2 (08:31→08:32)
[2025-09-16] MEDS: BUPIVACAINE 0.25% PF 30 ML VIAL ONE (08:31)
[2025-09-16] MEDS: SODIUM CHLORIDE 0.9% PF INJ 10 ML VIAL EPI STA ×2 (08:32)
[2025-09-16] MEDS: LIDOCAINE 2%/EPINEPHRINE 1:200,000 20 ML PF EPI STA ×2 (08:32)
--- NOTE | 2025-09-16 10:06 | Labor Progress Brief Note ---
Date of Service September 16, 2025 Subjective comfortable with epidural. Assessment & Plan (1) PROM (premature rupture of membranes): Plan good cx change in labor, with pit aug. will see how arom of forebag helps labor. fhts categ 1. pt aware i am taking over care. Admission and Anticipated Discharge Date Admission Date: September 16, 2025 Physical Exam Constitutional: WD/WN, vitals as above Genitourinary: Manual OB Exam: + cervical dilation 7 cm, + cervical effacement 90%, + station -1 and + amniotic fluid (arom forebag) clear OB Exam Monitor Tracing: + external FHT monitor used, + external uterine monitor used (q3), + category I and + normal FHT variability Results & Data Vital Signs (Past 12 Hours) Vital Signs Temp Pulse Resp BP Pulse Ox 09/16/25 10:03 88 09/16/25 10:03 95 H 123/55 L 09/16/25 10:00 18 09/16/25 10:00 18 09/16/25 09:58 87 100 09/16/25 09:53 83 100 09/16/25 09:48 102 H 113/64 99 09/16/25 09:43 108 H 99 09/16/25 09:38 98.2 F 87 100 09/16/25 09:33 92 H 100 09/16/25 09:32 88 141/64 H 09/16/25 09:30 18 09/16/25 09:30 18 09/16/25 09:28 88 100 09/16/25 09:23 96 H 100 09/16/25 09:18 91 H 100 09/16/25 09:17 83 125/65 09/16/25 09:13 83 100 09/16/25 09:08 86 100 09/16/25 09:03 83 100 09/16/25 09:02 83 134/67 09/16/25 09:00 18 09/16/25 09:00 98.1 F 18 09/16/25 08:58 88 100 09/16/25 08:53 84 100 09/16/25 08:48 89 100 09/16/25 08:46 91 H 125/64 09/16/25 08:43 87 100 09/16/25 08:38 85 100 09/16/25 08:34 89 129/61 09/16/25 08:33 88 100 09/16/25 08:30 16 09/16/25 08:30 16 09/16/25 08:28 96 H 100 09/16/25 08:23 95 H 100 09/16/25 08:18 90 100 09/16/25 08:17 96 H 131/74 09/16/25 08:13 97 H 100 09/16/25 08:08 101 H 100 09/16/25 08:03 84 100 09/16/25 08:01 92 H 115/57 L 09/16/25 08:00 18 09/16/25 08:00 18 09/16/25 07:58 82 99 09/16/25 07:53 96 H 100 09/16/25 07:48 95 H 100 09/16/25 07:46 90 120/61 09/16/25 07:43 105 H 100 09/16/25 07:41 80 128/68 09/16/25 07:38 109 H 100 09/16/25 07:35 85 124/60 09/16/25 07:33 92 H 100 09/16/25 07:30 90 20 129/60 09/16/25 07:28 77 99 09/16/25 07:25 79 127/55 L 09/16/25 07:23 99 H 100 09/16/25 07:20 82 130/63 09/16/25 07:18 84 99 09/16/25 07:15 87 132/60 09/16/25 07:13 99 09/16/25 07:13 100 H 09/16/25 07:13 98 H 144/67 H 09/16/25 07:11 106 H 141/64 H 09/16/25 07:09 122 H 158/69 H 09/16/25 07:08 123 H 100 09/16/25 07:07 97 H 129/59 L 09/16/25 07:05 116 H 122/58 L 09/16/25 07:03 100 09/16/25 07:03 121 H 09/16/25 07:03 125 H 156/68 H 09/16/25 07:01 133 H 161/76 H 09/16/25 07:00 18 09/16/25 07:00 98.1 F 18 09/16/25 06:59 103 H 106/62 09/16/25 06:58 106 H 99 09/16/25 06:57 92 H 107/58 L 09/16/25 06:56 97 H 118/58 L 09/16/25 06:55 94 H 104/58 L 09/16/25 06:53 99 09/16/25 06:53 92 H 09/16/25 06:53 88 123/63 09/16/25 06:52 86 116/65 09/16/25 06:50 71 125/76 09/16/25 06:48 100 09/16/25 06:48 71 09/16/25 06:48 77 78/40 L 09/16/25 06:47 80 90/47 L 09/16/25 06:45 100 H 127/69 09/16/25 06:43 100 H 100 09/16/25 06:38 84 100 09/16/25 06:33 82 100 09/16/25 06:28 78 100 09/16/25 06:23 77 100 09/16/25 06:21 72 138/72 09/16/25 05:24 98.1 F 09/16/25 03:08 107 H 134/64 09/16/25 02:53 97.9 F 107 H 16 Coding Level of Care Code None Diagnoses PROM (premature rupture of membranes) O42.90
--- NOTE | 2025-09-16 10:41 | Delivery Summary ---
Vaginal Delivery Summary Date of Service September 16, 2025 Vaginal Delivery Summary and 2nd Degree LAC The patient dilated to complete and pushed to deliver a viable female Apgars 8 and 9 via over 2nd degree perineal laceration. Mouth and nose bulb suctioned at perineum. Loose nuchal cord noted x 1 and delivered through. Shoulders and body delivered with ease. Body cord also noted. was vigorous at . Cord clamped at 30+ seconds of life and infant to maternal abdomen where the cord was then doubly clamped and cut. Placenta delivered spontaneously and intact, three-vessel cord. Hemostasis achieved with dilute pitocin and uterine massage and 1000mcg rectal cyctotec. Laceration repaired in usual fashion with 3-0 vicryl. Small left periclitoral abrasion was bleeding and reapproximated with single interrupted suture of 4-0 Vicryl for excellent hemostasis. Cervix and sulci intact. QBL 798 cc. Mother and baby stable in recovery. [facility] Vaginal Delivery Charge Delivery Type Details: and 2nd Degree LAC
[2025-09-16] MEDS ORDERED: DIPHTHER/TETAN/PERTUS Vaccine (Tdap, Adol/Adult) 0.5mL IM ONE (11:00)
[2025-09-16] MEDS ORDERED: ALBUTEROL HFA 8 GM INHALER INH PRN (11:00)
[2025-09-16] MEDS ORDERED: HYDROCORTISONE ACETATE 25 MG SUPP PR PRN (11:00)
--- NOTE | 2025-09-16 11:36 | Anesthesia Procedure Note ---
Date of Service September 16, 2025 Anesthesia Post Epidural Note Vital Signs Vital Signs: Temp Pulse Resp BP Pulse Ox 98.2 F 82 20 125/60 100 09/16/25 09:38 09/16/25 11:31 09/16/25 11:15 09/16/25 11:31 09/16/25 10:28 Notes Mental Status: alert / awake / arousable and participated in evaluation Nausea / Vomiting: adequately controlled Pain: adequately controlled Airway Patency, RR, SpO2: stable & adequate BP & HR: stable & adequate Hydration State: stable & adequate Neuraxial Anesthesia: was administered and sensory block is resolving Anesthetic Complications: no major complications apparent and Pt Satisfied with anesthetic care Epidural: Removed without complications and With tip intact
[2025-09-16] MEDS: IBUPROFEN 600 MG TAB PO PRN (16:00)
[2025-09-16] MEDS: BENZOCAINE 20% SPRY 85 APPLN/85 GM CAN EXT PRN (17:49)
[2025-09-16] MEDS: DOCUSATE SODIUM 100 MG CAP PO SCH (20:44)
[2025-09-17] MEDS: LEVOTHYROXINE SODIUM 75 MCG TABLET PO SCH (05:55)
[2025-09-17 06:21] LABS: Hematocrit (blood only) 29.2 % (37.0-47.0); Hemoglobin 10.0 g/dl (12.0-16.0)
--- NOTE | 2025-09-17 07:05 | Obstetrical Progress Note ---
Date of Service September 17, 2025 Assessment & Plan (1) care and examination: Plan: 30yo post- day--1 s/p Fells well today Continue post- care Encourage ambulation and bottle feeding Pain controlled with Ibuprofen Vital Signs and Hgb stable Admission and Anticipated Discharge Date Admission Date: September 16, 2025 Supervising Physician Co-Signing Physician Notes Resident Physician Supervision Note: I was present with Dr. Wells during the history and exam. I discussed the case with the resident and agree with the findings and plan as documented in the note. Any exceptions or clarifications are listed here: stable routine care. needs rhogam. abd soft ff 2 down nt, ext nt calves. ppd #1 s/p routine care. , will get rhogam, ri. Documented By: Kiera Tirado MD, FACOG Subjective 30yo post- day 1 s/p Ambulation: Ambulating normally Voiding: No voiding problems Passing Gas:: Yes Diet Tolerance:: regular diet Lochia:: Small Feeding Type:: bottle feeding Current Pain Level: 2/10 controlled with Ibuprofen Resting comfortably this AM in NAD. Denies BENDER, CP, SOB, N/V/D, LE pain/swelling. Physical Exam Physical Exam: General: patient resting comfortably, NAD, non-toxic in appearance, answers questions appropriately Skin: warm, dry, intact Heart: S1/S2 heard, regular, no m/r/g Lungs: equal air entry bilaterally, no rales/rhonchi/wheezes Abd: Normoactive BS, soft, NT/ND, uterine fundus firm below umbilicus Ext: warm, no clubbing/cyanosis or edema, Milla's neg Neuro: nonfocal, patient AAOx4, speech intact, no facial droop, moving all extremities on command Results & Data Vital Signs (Past 12 Hours) Vital Signs Temp Pulse Resp BP Pulse Ox O2 Del Method 09/17/25 03:06 36.8 C 68 18 137/88 98 Room Air 09/16/25 22:52 36.7 C 71 16 130/85 99 Room Air Resident Activity Tracking Resident Involvement: Resident Care Provided Care Provided: OB Delivery
[2025-09-17] MEDS: PRENATAL VITAMIN 1 TAB PO SCH (07:30)
[2025-09-17] MEDS: ACETAMINOPHEN 325 MG TAB PO PRN (19:31)
[2025-09-17 21:30] VITALS: RESP 16
--- NOTE | 2025-09-18 07:47 | Obstetrical Progress Note ---
Date of Service September 18, 2025 Assessment & Plan (1) care and examination: Plan: 30yo post- day--2 s/p Fells well today Continue post- care Encourage ambulation and bottle feeding Pain controlled with Ibuprofen and Tylenol, recommend scheduled doses to minimize discomfort Zofran prn for nausea Vital Signs stable D/c today. Follow up in OB office for 6 week check up. D/c instructions discussed. Admission and Anticipated Discharge Date Admission Date: September 16, 2025 Supervising Physician Co-Signing Physician Notes Resident Physician Supervision Note: I interviewed and examined the patient. Discussed with Dr. Wells and agree with findings and plan as documented in the note. Any exceptions or clarifications are listed here: reviewed pain expectations and precautions. Overall doing well PPD#2 from . FF at umbilicus, trace edema of LE. S/P rhogam. DC home today. Documented By: Rosa Salguero MD Subjective 30yo post- day 2 s/p Ambulation: Ambulating normally Voiding: No voiding problems Passing Gas:: Yes Diet Tolerance:: regular diet, experienced nausea after dinner last evening Lochia:: Small Feeding Type:: bottle feeding Current Pain Level: 4/10 controlled with Ibuprofen, Tylenol Experiencing some cramping lower and RUQ abdominal discomfort today Resting comfortably this AM in NAD. Denies BENDER, CP, SOB, V/D, LE pain/swelling Physical Exam Physical Exam: General: patient resting comfortably, NAD, non-toxic in appearance, answers ques tions appropriately Skin: warm, dry, intact Heart: S1/S2 heard, regular, no m/r/g Lungs: equal air entry bilaterally, no rales/rhonchi/wheezes Abd: Normoactive BS, soft, ND, minor tenderness to palpation in RUQ. uterine fundus firm below umbilicus Ext: warm, no clubbing/cyanosis or edema, Milla's neg Neuro: nonfocal, patient AAOx4, speech intact, no facial droop, moving all extremities on command Results & Data Vital Signs (Past 12 Hours) Vital Signs Temp Pulse Resp BP Pulse Ox O2 Del Method 09/18/25 03:45 36.6 C 74 16 130/83 96 Room Air Resident Activity Tracking Resident Involvement: Resident Care Provided Care Provided: OB Delivery
[2025-09-18 08:52] VITALS: BP 131/83; PULSE 69; TEMP 98.2; O2SAT 98
== END 2025-09-18 11:22 | disposition home or self-care (01) | DRG 807 ==
LOC: OPB 02:26 → 4S1 02:30 → 4E2 14:27